=== PATIENT | female | born 1980 | race Caucasian/White ===

== ENCOUNTER 2021-03-18 09:09 | Emergency (ER) | payer OTHER ==
--- NOTE | 2021-03-18 09:47 | ED Physician Documentation ---
PD HPI ABD PAIN - Stated complaint Stated Complaint: ABD PX - Chief complaint Chief Complaint: Abd Pain - History obtained from History obtained from: Patient - History of Present Illness Timing - onset: Last night, Yesterday Timing - duration: Days (/2) Timing - details: Gradual onset, Still present Quality: Cramping, Aching, Pain Location: LLQ Radiation: Lower back. No: Chest, Left flank Improved by: Laying still. No: Eating Worsened by: Moving, Palpation. No: Eating, Breathing Associated symptoms: Nausea, Loss of appetite. No: Fever, Vomiting, Diarrhea, Constipation, Melena, Dysuria, Chest pain Similar symptoms before: Has not had sx before Recently seen: Not recently seen Review of Systems Constitutional: denies: Fever, Chills Nose: denies: Rhinorrhea / runny nose, Congestion Throat: denies: Sore throat Respiratory: denies: Cough GI: reports: Abdominal Pain, Nausea. denies: Vomiting, Constipation, Diarrhea, Bloody / black stool : denies: Dysuria, Frequency, Vaginal bleeding Skin: denies: Rash, Lesions Neurologic: denies: Generalized weakness, Focal weakness, Numbness, Near syncope PD PAST MEDICAL HISTORY - Past Medical History Cardiovascular: None Respiratory: None GI: None - Present Medications Home Medications: Ambulatory Orders Medication Instructions Recorded Confirmed HYDROcod/ACETAM 5/325 [Arroyo 5/325] 1 ea PO Q6H PRN #14 tablet 03/18/21 Naproxen 250 mg PO TID 5 Days #15 tablet 03/18/21 Ondansetron Odt [Zofran] 4 mg TL Q6H PRN #15 tablet 03/18/21 cephALEXin [Keflex] 500 mg PO TID 5 Days #15 cap 03/18/21 metroNIDAZOLE [Flagyl] 250 mg PO TID 5 Days #15 tablet 03/18/21 - Allergies Allergies/Adverse Reactions: Allergies Allergy/AdvReac Type Severity Reaction Status Date / Time No Known Drug Allergies Allergy Verified 03/18/21 09:25 PD ED PE NORMAL - Vitals Vital signs reviewed: Yes - General General: Alert and oriented X 3, Well developed/nourished, Other (appears mildly in pain left low abd. ) - Neck Neck: Supple, no meningeal sign, No adenopathy - Cardiac Cardiac: RRR, No murmur - Respiratory Respiratory: Clear bilaterally - Abdomen Abdomen: Soft, Non distended, No organomegaly, Other (tender left lower to mid abd without guarding nor percussion tenderness. ). No: Normal bowel sounds (decreased somewhat) - Female Female : Deferred - Rectal Rectal: Deferred - Back Back: No CVA TTP - Derm Derm: Normal color, Warm and dry, No rash - Extremities Extremities: No edema, No calf tenderness / cord - Neuro Neuro: Alert and oriented X 3, No motor deficit, Normal speech Results - Vitals Vitals: Vital Signs - 24 hr 03/18/21 03/18/21 03/18/21 09:18 11:24 12:56 Temperature 36.7 C 37 C Heart Rate 71 65 65 Respiratory 16 19 18 Rate Blood Pressure 124/78 109/50 L 122/72 O2 Saturation 99 97 99 Oxygen O2 Source Room air - Labs Labs: Laboratory Tests 03/18/21 03/18/21 03/18/21 05:43 09:51 09:51 WBC 13.4 H RBC 4.88 Hgb 14.5 Hct 43.8 MCV 89.8 MCH 29.7 MCHC 33.1 RDW 12.9 Plt Count 275 MPV 10.7 Neut # (Auto) 10.7 H Lymph # (Auto) 1.4 L [place] # (Auto) 1.0 Eos # (Auto) 0.1 Baso # (Auto) 0.1 Absolute Nucleated RBC 0.00 Nucleated RBC % 0.0 Sodium 133 L Potassium 4.3 Chloride 101 Carbon Dioxide 24 Anion Gap 8.0 BUN 18 Creatinine 0.7 Estimated GFR (MDRD) 94 Glucose 126 H Calcium 9.6 Total Bilirubin 1.0 AST 17 ALT 34 Alkaline Phosphatase 60 Total Protein 8.0 Albumin 4.4 Globulin 3.6 Albumin/Globulin Ratio 1.2 Lipase 24 Urine Color LIGHT YELLOW Urine Clarity CLEAR Urine pH 7.0 Ur Specific [place] 1.015 Urine Protein NEGATIVE Urine Glucose (UA) NEGATIVE Urine Ketones NEGATIVE Urine Occult Blood SMALL H Urine Nitrite NEGATIVE Urine Bilirubin NEGATIVE Urine Urobilinogen 0.2 (NORMAL) Ur Leukocyte Esterase NEGATIVE Urine RBC 0-5 Urine WBC 0-3 Ur Squamous Epith Cells MOD Squamous H Urine Bacteria Few Ur Microscopic Review INDICATED Urine Culture Comments NOT INDICATED Urine HCG, Qual NEGATIVE - Rads (name of study) abd/pelvic CT Radiology: Prelim report reviewed (sigmoid diverticulitis without abscess nor perforation. ), See rad report PD MEDICAL DECISION MAKING - ED course Complexity details: reviewed results, re-evaluated patient (patient improved with meds here. ), considered differential (consider diverticular vs kidney stone vs ovarian cyst, or other considerations. ), d/w patient Departure - Departure Disposition: 01 Home, Self Care Clinical Impression: Left sided abdominal pain, Acute diverticulitis Condition: Stable Record reviewed to determine appropriate education?: Yes Instructions: ED Diverticulitis Prescriptions: metroNIDAZOLE [Flagyl] 250 mg PO TID 5 Days #15 tablet cephALEXin [Keflex] 500 mg PO TID 5 Days #15 cap Naproxen 250 mg PO TID 5 Days #15 tablet HYDROcod/ACETAM 5/325 [[place] 5/325] 1 ea PO Q6H PRN #14 tablet PRN Reason: Pain Ondansetron Odt [Zofran] 4 mg TL Q6H PRN #15 tablet PRN Reason: Nausea / Vomiting Comments: Your CT scan shows acute diverticulitis of the sigmoid and descending colon. Refer to the information sheet. We typically treat this with good hydration and regular diet along with anti- inflammatories and antibiotics. I wrote prescriptions for naproxen cephalexin and metronidazole to take 3 times a day for the next 5 days. To that add Tylenol every 4-6 hours or hydrocodone if needed for worse pain. Use ondansetron if needed for nausea. I would anticipate improvement and resolution over the next 2 to 3 days or so. Recheck if not improved in that timeframe and return if worsening. I transmitted your prescriptions to [facility] pharmacy in [place]. I am prescribing a short course of narcotic pain medication for you. These are potentially dangerous and addictive medications that should be used carefully. These medications may constipate you. Take an [id number]-[id number] stool softener such as docusate twice daily with plenty of water while taking these medications. If you go 24 hours without a bowel movement, take [id number] MiraLAX, per package instructions. Do not drink or drive while taking these medications. If you received narcotic or sedating medications while in the emergency department do not drive for 24 hours. Store this medication in a safe, secure place and out of reach of children. It is a violation of federal law to give or sell this medication to another person or to use in a manner other than prescribed. The ED will not refill narcotic prescriptions, including prescriptions lost or stolen. You can dispose of unwanted medications at the [facility] office or at several pharmacies such as [facility]. Discharge Date/Time: 03/18/21 12:58
[2021-03-18 09:57] LABS: BASOPHILS # (AUTO) 0.1 10^3/uL (0.0-0.1); BASOPHILS % (AUTO) 0.5 %; EOSINOPHILS # (AUTO) 0.1 10^3/uL (0.0-0.7); EOSINOPHILS % (AUTO) 0.9 %; HCT - HEMATOCRIT 43.8 % (37.0-47.0); HGB - HEMOGLOBIN 14.5 g/dL (12.0-16.0); LYMPHOCYTES # (AUTO) 1.4 10^3/uL (1.5-3.5); LYMPHOCYTES % (AUTO) 10.7 %; MEAN CORPUSCULAR HEMOGLOBIN 29.7 pg (27.0-31.0); MEAN CORPUSCULAR HGB CONC 33.1 g/dL (32.0-36.0); MEAN CORPUSCULAR VOLUME 89.8 fL (81.0-99.0); MEAN PLATELET VOLUME 10.7 fL (7.9-10.8); MONOCYTES % (AUTO) 7.4 %; NEUTROPHILS # (AUTO) 10.7 10^3/uL (1.5-6.6); NEUTROPHILS % (AUTO) 80.1 %; PLT - PLATELET COUNT 275 10^3/uL (130-450); RED BLOOD COUNT 4.88 10^6/uL (4.20-5.40); RED CELL DISTRIBUTION WIDTH 12.9 % (12.0-15.0); WHITE BLOOD COUNT 13.4 x10^3/uL (4.8-10.8)
[2021-03-18] MEDS ORDERED: HYDROmorphone 1 MG/ML CARPUJECT IVP STA (10:00)
[2021-03-18] MEDS ORDERED: KETOROLAC 30 MG/ML VIAL IVP STA (10:00)
[2021-03-18] MEDS ORDERED: SODIUM CHLORIDE 0.9% 1,000 ML IV STA (10:00)
[2021-03-18] MEDS ORDERED: ONDANSETRON 4 MG/2 ML VIAL IVP STA (10:00)
[2021-03-18 10:05] LABS: BILIRUBIN,URINE NEGATIVE (NEGATIVE); GLUCOSE, URINE (UA) NEGATIVE (NEGATIVE); KETONES,URINE (UA) NEGATIVE (NEGATIVE); LEUKOCYTE ESTERASE, URINE NEGATIVE (NEGATIVE); NITRITE,URINE NEGATIVE (NEGATIVE); OCCULT BLOOD,URINE SMALL (NEGATIVE); PROTEIN,URINE NEGATIVE (NEGATIVE); UROBILINOGEN,URINE 0.2 (NORMAL) E.U./dL (NORMAL)
[2021-03-18 10:08] LABS: ALBUMIN 4.4 g/dL (3.2-5.5); ALBUMIN/GLOBULIN RATIO 1.2 (1.0-2.2); CALCIUM 9.6 mg/dL (8.5-10.3); CREATININE 0.7 mg/dL (0.4-1.0); POTASSIUM 4.3 mmol/L (3.5-5.0)
[2021-03-18 10:10] LABS: CLARITY,URINE CLEAR (CLEAR); HCG UR QUAL NEGATIVE
[2021-03-18 10:19] LABS: BACTERIA,URINE Few /HPF (None Seen); RBC,URINE 0-5 /HPF (0-5); SQUAMOUS EPITHELIAL CELL,UR MOD Squamous (<= Few); WBC,URINE 0-3 /HPF (0-5)
[2021-03-18] MEDS ORDERED: iohexoL-300 100 ML VIAL ONE (10:55)
[2021-03-18] MEDS ORDERED: iohexoL-300 100 ML VIAL IVP ONE (11:15)
--- NOTE | 2021-03-18 11:25 | CT Report ---
PROCEDURE: Abdomen/Pelvis W INDICATIONS: left abd pain CONTRAST: IV CONTRAST: Isovue 300 ml: 100 PO CONTRAST: *NO PO CONTRAST TECHNIQUE: After the administration of IV contrast, 5 mm thick sections acquired from the diaphragms to the symp hysis. 5 mm thick coronal and sagittal reformats were acquired. For radiation dose reduction, the f ollowing was used: automated exposure control, adjustment of mA and/or kV according to patient size. COMPARISON: None. FINDINGS: Image quality: Excellent. ABDOMEN: Lung bases: Lung bases are clear. Heart size is normal. Solid organs: Incidental note is made of focal fatty infiltration adjacent to the falciform ligament , which is not regarded to the frankly pathologic. The liver demonstrates normal size. The spleen d emonstrates normal size and demonstrates no suspicious lesions. Gallbladder wall does not appear thi ckened. Biliary system is non dilated. Pancreas enhances normally. No adrenal nodules. Kidneys demonstrate normal size and enhancement, without hydronephrosis. Peritoneum and bowel: There is abnormal wall thickening seen involving the distal descending colon/pr oximal sigmoid colon, with surrounding inflammatory change. A few diverticula can be seen within this region. No abscess can be seen. No free air or significant free fluid can be seen. No additional focal colonic abnormality can be seen. No dilated loops of small bowel are seen. Nodes and vessels: No retroperitoneal or mesenteric adenopathy by size criteria. Aorta and inferior vena cava are normal in size. Miscellaneous: No ventral hernias. PELVIS: Genitourinary: Bladder wall thickness is normal. The uterus demonstrates an unremarkable appearance for age. No adnexal masses are seen. Miscellaneous: No inguinal hernias or adenopathy. Bones: No suspicious bony lesions. No vertebral body compression fractures. Mild levoconvex scolio tic curvature is seen. This patient has transitional anatomy. For the purposes of this examination, the level with disc degenerative ribs is considered to be T12. By this numbering scheme, the L5 level is transitional and is highly sacralized on the right side. IMPRESSION: Focal distal descending colon/proximal sigmoid colon diverticulitis, without findings of perforation or abscess. 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
[2021-03-18] MEDS ORDERED: cefTRIAXone 1 GM VIAL IVP STA (11:59)
[2021-03-18] MEDS ORDERED: metroNIDAZOLE 250 MG TABLET PO STA (12:00)
[2021-03-18] MEDS ORDERED: HYDROmorphone 0.5 MG/0.5 ML SYRINGE IVP STA (12:29)
[2021-03-18 12:57] VITALS: BP 122/72
== END 2021-03-18 12:58 | disposition home or self-care (01) ==
LOC: ED 09:09
DX: K57.32 Diverticulitis of large intestine without perforation or abscess without bleeding (principal)
CPT/HCPCS: 36415; 74177; 80053; 81001; 81025; 83690; 85025; 96374; 96375; 96376; 99284; A9270; J1170; Q9967; 81003; 87086

== ENCOUNTER 2022-07-14 18:04 | Emergency (ER) | payer MEDICAID, OTHER ==
--- NOTE | 2022-07-14 18:40 | ED Physician Documentation ---
History of Present Illness - Stated complaint Stated Complaint: BLEEDING/ - Chief complaint Chief Complaint: Abd Pain - History obtained from History obtained from: Patient - History of Present Illness Timing: Today Pain level max: 2 Pain level now: 2 - Additonal information Additional information: 41-year-old female, 3 para 1 presents to the emergency department stating that she is unsure of her dating but thinks she could be as far as 10 weeks along. She has an appointment with an OB at the beginning of July. She states that today she developed vaginal bleeding at about noon, recurred about 2 hours later. Is not having abdominal pain. No fevers. No chills. Nothing makes it better or worse. 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) HEENT: None - Past Surgical History Past Surgical History: No - Allergies Allergies/Adverse Reactions: Allergies Allergy/AdvReac Type Severity Reaction Status Date / Time No Known Drug Allergies Allergy Verified 07/14/22 18:23 - Social History Does the pt smoke?: No Smoking Status: Never smoker Does the pt drink ETOH?: No Does the pt have substance abuse?: No - Immunizations Immunizations are current?: Yes PD ED PE NORMAL - Vitals Vital signs reviewed: Yes - General General: Alert and oriented X 3, No acute distress - HEENT HEENT: Moist mucous membranes - Cardiac Cardiac: RRR, Strong equal pulses - Respiratory Respiratory: No respiratory distress, Clear bilaterally - Abdomen Abdomen: Soft, Non tender, Non distended - Derm Derm: Warm and dry - Extremities Extremities: No edema, No calf tenderness / cord - Neuro Neuro: Alert and oriented X 3 - Psych Psych: Normal mood, Normal affect Results - Vitals Vitals: Vital Signs - 24 hr 07/14/22 07/14/22 18:19 21:07 Temperature 36.7 C Heart Rate 75 78 Respiratory 18 18 Rate Blood Pressure 127/84 H 124/82 H O2 Saturation 100 100 Oxygen O2 Source Room air - Labs Labs: Laboratory Tests 0507/14/22 07/14/22 18:39 18:39 18:39 WBC 13.4 H RBC 4.71 Hgb 13.8 Hct 42.6 MCV 90.4 MCH 29.3 MCHC 32.4 RDW 13.0 Plt Count 292 MPV 10.4 Neut # (Auto) 9.9 H Lymph # (Auto) 2.5 [place] # (Auto) 0.8 Eos # (Auto) 0.1 Baso # (Auto) 0.1 Absolute Nucleated RBC 0.00 Nucleated RBC % 0.0 Sodium 139 Potassium 3.6 Chloride 106 Carbon Dioxide 25 Anion Gap 8.0 BUN 17 Creatinine 0.6 Estimated GFR (MDRD) 111 Glucose 104 H Calcium 9.9 Total Bilirubin 0.6 AST 16 ALT 25 Alkaline Phosphatase 57 Total Protein 8.1 Albumin 4.5 Globulin 3.6 Albumin/Globulin Ratio 1.3 Lipase 32 HCG, Quant Urine Color Urine Clarity Urine pH Ur Specific [place] Urine Protein Urine Glucose (UA) Urine Ketones Urine Occult Blood Urine Nitrite Urine Bilirubin Urine Urobilinogen Ur Leukocyte Esterase Urine RBC Urine WBC Ur Squamous Epith Cells Urine Bacteria Ur Microscopic Review Urine Culture Comments Blood Type O POSITIVE 07/14/22 07/14/22 18:39 18:59 WBC RBC Hgb Hct MCV MCH MCHC RDW Plt Count MPV Neut # (Auto) Lymph # (Auto) [place] # (Auto) Eos # (Auto) Baso # (Auto) Absolute Nucleated RBC Nucleated RBC % Sodium Potassium Chloride Carbon Dioxide Anion Gap BUN Creatinine Estimated GFR (MDRD) Glucose Calcium Total Bilirubin AST ALT Alkaline Phosphatase Total Protein Albumin Globulin Albumin/Globulin Ratio Lipase HCG, Quant 547.24 Urine Color YELLOW Urine Clarity CLEAR Urine pH 5.5 Ur Specific [place] 1.020 Urine Protein NEGATIVE Urine Glucose (UA) NEGATIVE Urine Ketones NEGATIVE Urine Occult Blood LARGE H Urine Nitrite NEGATIVE Urine Bilirubin NEGATIVE Urine Urobilinogen 0.2 (NORMAL) Ur Leukocyte Esterase NEGATIVE Urine RBC 6-10 H Urine WBC 0-3 Ur Squamous Epith Cells FEW Squamous Urine Bacteria Few Ur Microscopic Review INDICATED Urine Culture Comments NOT INDICATED Blood Type - Rads (name of study) OB ultrasound Relevant Findings:: Final report received, See rad report PD Medical Decision Making - ED course Complexity details: reviewed results, re-evaluated patient, considered tristane felicia, d/w patient ED course: 41-year-old female with painless vaginal bleeding, unsure of her dates. Her beta-hCG is 547. Her OB ultrasound does not show any evidence of at this time. She does not have any pain. The remainder of her laboratory tests are normal except a mildly elevated white blood cell count. We will have her follow-up with OB for repeat beta hCG to see if it is increasing or decreasing. Ectopic precautions given at bedside. Patient counseled regarding signs and symptoms for which I believe and urgent re-evaluation would be necessary. Patient with good understanding of and agreement to plan and is comfortable going home at this time This document was made in part using voice recognition software. While efforts are made to proofread this document, sound alike and grammatical errors may occur. Departure - Departure Disposition: 01 Home, Self Care Clinical Impression: Vaginal bleeding affecting early Condition: Good Instructions: ED Miscarriage Poss Follow-Up: Your,doctor in 3 days [Other] Comments: Please follow-up with your OB or PCP in 3 days for repeat beta-hCG. Your hCG level today is 547.24. Your ultrasound does not show any evidence of at this time. This is likely either due to an early or a possible miscarriage. Please return if you worsen. If the hCG level is increasing appropriately, this is likely a early , if the hCG is decreasing, likely represents miscarriage. Discharge Date/Time: 07/14/22 21:08
[2022-07-14 18:47] LABS: BASOPHILS # (AUTO) 0.1 10^3/uL (0.0-0.1); BASOPHILS % (AUTO) 0.4 %; EOSINOPHILS # (AUTO) 0.1 10^3/uL (0.0-0.7); EOSINOPHILS % (AUTO) 0.4 %; HCT - HEMATOCRIT 42.6 % (37.0-47.0); HGB - HEMOGLOBIN 13.8 g/dL (12.0-16.0); LYMPHOCYTES # (AUTO) 2.5 10^3/uL (1.5-3.5); LYMPHOCYTES % (AUTO) 18.7 %; MEAN CORPUSCULAR HEMOGLOBIN 29.3 pg (27.0-31.0); MEAN CORPUSCULAR HGB CONC 32.4 g/dL (32.0-36.0); MEAN CORPUSCULAR VOLUME 90.4 fL (81.0-99.0); MEAN PLATELET VOLUME 10.4 fL (7.9-10.8); MONOCYTES # (AUTO) 0.8 10^3/uL (0.0-1.0); MONOCYTES % (AUTO) 6.1 %; NEUTROPHILS # (AUTO) 9.9 10^3/uL (1.5-6.6); NEUTROPHILS % (AUTO) 74.1 %; PLT - PLATELET COUNT 292 10^3/uL (130-450); RED BLOOD COUNT 4.71 10^6/uL (4.20-5.40); WHITE BLOOD COUNT 13.4 x10^3/uL (4.8-10.8)
[2022-07-14 19:03] LABS: ALBUMIN 4.5 g/dL (3.2-5.5); ALBUMIN/GLOBULIN RATIO 1.3 (1.0-2.2); BILIRUBIN,TOTAL 0.6 mg/dL (0.2-1.0); CALCIUM 9.9 mg/dL (8.5-10.3); CREATININE 0.6 mg/dL (0.4-1.0); POTASSIUM 3.6 mmol/L (3.5-5.0); TOTAL PROTEIN 8.1 g/dL (6.7-8.2)
[2022-07-14 19:05] LABS: BILIRUBIN,URINE NEGATIVE (NEGATIVE); CLARITY,URINE CLEAR (CLEAR); GLUCOSE, URINE (UA) NEGATIVE (NEGATIVE); KETONES,URINE (UA) NEGATIVE (NEGATIVE); LEUKOCYTE ESTERASE, URINE NEGATIVE (NEGATIVE); NITRITE,URINE NEGATIVE (NEGATIVE); OCCULT BLOOD,URINE LARGE (NEGATIVE); PH,URINE 5.5 PH (5.0-7.5); PROTEIN,URINE NEGATIVE (NEGATIVE); UROBILINOGEN,URINE 0.2 (NORMAL) E.U./dL (NORMAL)
[2022-07-14 19:12] LABS: SQUAMOUS EPITHELIAL CELL,UR FEW Squamous (<= Few); WBC,URINE 0-3 /HPF (0-5)
[2022-07-14 19:13] LABS: BACTERIA,URINE Few /HPF (None Seen)
--- NOTE | 2022-07-14 20:31 | Ultrasound Report ---
PROCEDURE: OB First Trimester w/TV INDICATIONS: 10 weeks preg, VB OUTSIDE/PRIOR DATING DATA: Last menstrual period (LMP): Not available. LMP-based estimated date of delivery (SILVANA): Not available. First dating scan (date and location): This study. Estimated date of delivery (SILVANA) from first dating scan: No identified. TECHNIQUE: Real-time scanning was performed of the fetus and maternal pelvic organs, with image documentation. Endovaginal scanning was also performed to better visualize the fetus and maternal ovaries. COMPARISON: None FINDINGS: An intrauterine gestational sac or gestation is not identified. Embryo: Not seen Heart rate: Not applicable Measurement variability in dating: +/- 4 weeks by LMP, +/- 7 days by mean sac diameter (use before 6 weeks gestation if crown-rump length not able to be measured), +/- 5 days by crown-rump length (6-12 weeks gestation). Maternal organs: Ovaries normal limited evaluation. IMPRESSION: No found, no sonographic evidence of ectopic , correlation with quantitative beta hCG may be warranted to determine if there is evidence of ectopic despite no visualized son ographic evidence of that potential abnormality. Reviewed by: Kory Underwood MD on 07/14/2022 8:30 PM PDT Approved by: Kory Underwood MD on 07/14/2022 8:30 PM PDT Station ID: [id number]
[2022-07-14 21:07] VITALS: BP 124/82
== END 2022-07-14 21:08 | disposition home or self-care (01) ==
LOC: ED 18:04
DX: O20.9 Hemorrhage in early pregnancy, unspecified (principal)
CPT/HCPCS: 36415; 80053; 81001; 81003; 83690; 84702; 85025; 86900; 86901; 87086; 99283; 99284

== ENCOUNTER 2022-07-20 10:08 | Emergency (ER) | payer MEDICAID ==
[2022-07-20 10:48] LABS: BASOPHILS # (AUTO) 0.1 10^3/uL (0.0-0.1); BASOPHILS % (AUTO) 0.7 %; EOSINOPHILS # (AUTO) 0.1 10^3/uL (0.0-0.7); EOSINOPHILS % (AUTO) 0.6 %; HCT - HEMATOCRIT 40.2 % (37.0-47.0); LYMPHOCYTES # (AUTO) 1.6 10^3/uL (1.5-3.5); LYMPHOCYTES % (AUTO) 13.7 %; MEAN CORPUSCULAR HEMOGLOBIN 29.5 pg (27.0-31.0); MEAN CORPUSCULAR HGB CONC 32.3 g/dL (32.0-36.0); MEAN CORPUSCULAR VOLUME 91.4 fL (81.0-99.0); MEAN PLATELET VOLUME 10.6 fL (7.9-10.8); MONOCYTES % (AUTO) 8.4 %; NEUTROPHILS % (AUTO) 76.3 %; PLT - PLATELET COUNT 262 10^3/uL (130-450); RED CELL DISTRIBUTION WIDTH 12.8 % (12.0-15.0); WHITE BLOOD COUNT 11.7 x10^3/uL (4.8-10.8)
[2022-07-20 10:51] LABS: PT - PROTHROMBIN TIME 11.5 secs (9.9-12.6)
--- NOTE | 2022-07-20 11:49 | ED Physician Documentation ---
PD HPI FEMALE - Stated complaint Stated Complaint: FEMALE - Chief complaint Chief Complaint: Abd Pain - History obtained from History obtained from: Patient - Additional information Additional information: The patient comes to the emergency department with chief complaint of ongoing lower abdominal cramping after a miscarriage about 6 days ago. The patient states that she is not exactly sure how far along she was, though she thinks somewhere between 6 and 12 weeks. She began to have bleeding and was seen here in the emergency department at which time she had ultrasound demonstrating IUP t hat was not viable and also had an hCG level performed. The patient has been in touch with OB since but states that she is here today because her bleeding had continued fairly heavily throughout the week and she is also had significant lower abdominal cramping. She does note that the bleeding has improved today but the cramping has not. She denies any focal pain. No fevers or chills. No nausea or vomiting. No dysuria. She did pass a very definite products of conception with a sac earlier in the week. 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) HEENT: None - Past Surgical History Past Surgical History: No - Allergies Allergies/Adverse Reactions: Allergies Allergy/AdvReac Type Severity Reaction Status Date / Time No Known Drug Allergies Allergy Verified 07/20/22 10:18 - Social History Does the pt smoke?: No Smoking Status: Never smoker Does the pt drink ETOH?: No Does the pt have substance abuse?: No - Immunizations Immunizations are current?: Yes PD ED PE NORMAL - Vitals Vital signs reviewed: Yes - General General: Alert and oriented X 3, No acute distress, Well developed/nourished - HEENT HEENT: Atraumatic, PERRL, EOMI, Moist mucous membranes - Neck Neck: Supple, no meningeal sign - Cardiac Cardiac: RRR, No murmur - Respiratory Respiratory: No respiratory distress, Clear bilaterally - Abdomen Abdomen: Soft, Non distended, Other (Mild tenderness left lower quadrant medially. No rebound or guarding.) - Derm Derm: Warm and dry - Extremities Extremities: No deformity - Neuro Neuro: Alert and oriented X 3 - Psych Psych: Normal mood, Normal affect Results - Vitals Vitals: Vital Signs - 24 hr 07/20/22 10:13 Temperature 37.0 C Heart Rate 78 Respiratory 20 Rate Blood Pressure 124/73 O2 Saturation 100 Oxygen O2 Source Room air - Labs Labs: Laboratory Tests 07/20/22 07/20/22 07/20/22 10:30 10:30 11:55 WBC 11.7 H RBC 4.40 Hgb 13.0 Hct 40.2 MCV 91.4 MCH 29.5 MCHC 32.3 RDW 12.8 Plt Count 262 MPV 10.6 Neut # (Auto) 9.0 H Lymph # (Auto) 1.6 [place] # (Auto) 1.0 Eos # (Auto) 0.1 Baso # (Auto) 0.1 Absolute Nucleated RBC 0.00 Nucleated RBC % 0.0 PT 11.5 INR 1.0 HCG, Quant 13.03 - Rads (name of study) Pelvic ultrasound Relevant Findings:: Final report received, See rad report (Negative. No susan ined products of conception.) PD Medical Decision Making - ED course Complexity details: reviewed results, re-evaluated patient, considered differential, d/w patient ED course: The patient was worked up with labs including hCG and an ultrasound of the pelvis. hCG was found to have come down from well over 500 six days ago to 13 today. Her ultrasound was normal with no evidence of retained products of conception. I felt the patient was stable for discharge home. She does not have any fevers or severe abdominal pain and discussed with her that most likely, the symptoms she is having just reflect her body is returned to normal after the and miscarriage. We discussed the usual indications for follow-up and return. Departure - Departure Disposition: 01 Home, Self Care Clinical Impression: Complete miscarriage Condition: Stable Instructions: Miscarriage Dc Comments: Your ultrasound does not show any retained products of conception, nor does it show any other reason to be concerned about the bleeding or the cramping. Your hormones to have gone from over 500 down to 13 in the last 6 days. This demonstrates that your miscarriage has progressed as it should and at this point in time, your body is most likely just going through the process of returning to normal. You may take ibuprofen if needed for the cramps. At this point, if you would like to use a tampon that is probably fine. He may resume sexual intercourse whenever you feel comfortable doing so. Please follow-up with your OB bundle breaker as needed or for further concerns.
[2022-07-20 13:41] VITALS: BP 135/76
--- NOTE | 2022-07-20 13:53 | Ultrasound Report ---
PROCEDURE: Pelvic Limited or F/U INDICATIONS: miscarriage, still bleeding/pain TECHNIQUE: Real-time transabdominal scanning was performed of the pelvic organs, with image documentation. COMPARISON: None. FINDINGS: Uterus: Uterus is anteverted and fibroid in size at 10.0 x 5.6 x 5.8 cm. The myometrium is heteroge neous. The endometrium measures 3 mm in combined thickness. No retained products of conception note d. There are 2 fibroids noted. Fibroid 1 is midline anterior, subserosal, 1.7 x 1.5 x 1.8 cm. Fibroid 2 is left posterior subserosal, measuring 2.0 x 2.3 x 2.2 cm. Right ovary not visualized, secondary to overlying bowel gas. Left ovary measures 2.5 x 1.5 x 2.3 cm with a volume of 4.6 cm. Left ovary is normal in appearance. Other: No free pelvic fluid. IMPRESSION: 1. No evidence retained products of conception. 2. Fibroid uterus. Reviewed by: Brandon Burt MD on 07/20/2022 1:51 PM PDT Approved by: Brandon Burt MD on 07/20/2022 1:51 PM PDT Station ID: [id number]
[2022-07-20 14:17] LABS: ALBUMIN 3.6 g/dL (3.2-5.5); ALBUMIN/GLOBULIN RATIO 1.2 (1.0-2.2); BILIRUBIN,TOTAL 0.5 mg/dL (0.2-1.0); CALCIUM 9.4 mg/dL (8.5-10.3); CREATININE 0.6 mg/dL (0.4-1.0); TOTAL PROTEIN 6.6 g/dL (6.7-8.2)
== END 2022-07-20 13:39 | disposition home or self-care (01) ==
LOC: ED 10:08
DX: O03.9 Complete or unspecified spontaneous abortion without complication (principal)
CPT/HCPCS: 36415; 80053; 83690; 84702; 85025; 85610; 99283; 99284

== ENCOUNTER 2023-07-23 12:55 | Emergency (ER) | payer MEDICAID ==
[2023-07-23 13:10] VITALS: O2SAT 100
[2023-07-23 13:54] LABS: BASOPHILS # (AUTO) 0.1 10^3/uL (0.0-0.1); BASOPHILS % (AUTO) 0.9 %; EOSINOPHILS # (AUTO) 0.1 10^3/uL (0.0-0.7); EOSINOPHILS % (AUTO) 1.2 %; HCT - HEMATOCRIT 43.2 % (37.0-47.0); HGB - HEMOGLOBIN 13.8 g/dL (12.0-16.0); LYMPHOCYTES % (AUTO) 18.2 %; MEAN CORPUSCULAR HGB CONC 31.9 g/dL (32.0-36.0); MEAN CORPUSCULAR VOLUME 90.8 fL (81.0-99.0); MEAN PLATELET VOLUME 10.2 fL (7.9-10.8); MONOCYTES # (AUTO) 0.8 10^3/uL (0.0-1.0); MONOCYTES % (AUTO) 7.5 %; NEUTROPHILS # (AUTO) 7.9 10^3/uL (1.5-6.6); NEUTROPHILS % (AUTO) 71.9 %; PLT - PLATELET COUNT 312 10^3/uL (130-450); RED BLOOD COUNT 4.76 10^6/uL (4.20-5.40); RED CELL DISTRIBUTION WIDTH 12.8 % (12.0-15.0)
[2023-07-23 14:08] LABS: ALBUMIN 4.4 g/dL (3.2-5.5); ALBUMIN/GLOBULIN RATIO 1.4 (1.0-2.2); BILIRUBIN,TOTAL 0.4 mg/dL (0.2-1.0); CALCIUM 10.5 mg/dL (8.5-10.3); CREATININE 0.6 mg/dL (0.6-1.3); POTASSIUM 4.7 mmol/L (3.5-4.5); TOTAL PROTEIN 7.6 g/dL (6.4-8.9)
--- NOTE | 2023-07-23 15:46 | Ultrasound Report ---
PROCEDURE: OB 1st Trimester w/TV INDICATIONS: early , cramps/bleeding OUTSIDE/PRIOR DATING DATA: Last menstrual period (LMP): 05/15/2023. LMP-based estimated date of delivery (SILVANA): 02/19/2024. TECHNIQUE: Real-time scanning was performed of the fetus and maternal pelvic organs, with image documentation. Endovaginal scanning was also performed to better visualize the fetus and maternal ovaries. COMPARISON: None. FINDINGS: Intrauterine gestational sac not visualized. No adnexal mass. Maternal organs: Right ovary not visualized. Left ovary is normal in appearance. IMPRESSION: of unknown location, with no gestational sac or adnexal mass visualized. Differential inclu surjit early gestational , miscarriage, or less likely ectopic . Consider trending bet a-hCG or repeat ultrasound as necessary. Reviewed by: Erich Mendez MD on 07/23/2023 3:44 PM PDT Approved by: Erich Mendez MD on 07/23/2023 3:44 PM PDT Station ID: [id number]
--- NOTE | 2023-07-23 16:58 | ED Physician Documentation ---
History of Present Illness - Stated complaint Stated Complaint: /6 WEEKS PREG - Chief complaint Chief Complaint: Abd Pain - History obtained from History obtained from: Patient, Family - History of Present Illness Timing: Last night Pain level max: 7 Pain level now: 2 - Additonal information Additional information: 42-year-old female, 6, para 3, presents to the emergency department stating that she is concerned about a miscarriage. She states that she was supposed to be 9 weeks EGA by her LMP. She was seen at [facility] in [place]. She states that her last hCG was 5300 and then down to 5100. She states last night began to have abdominal pain, cramping and vaginal bleeding. She states that the bleeding has slowed down now, but was concerned about the cramping. She states the cramping has improved at this time as well. 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) HEENT: None - Past Surgical History Past Surgical History: No - Allergies Allergies/Adverse Reactions: Allergies Allergy/AdvReac Type Severity Reaction Status Date / Time No Known Drug Allergies Allergy Verified 07/20/22 10:18 - Social History Does the pt smoke?: No Smoking Status: Never smoker Does the pt drink ETOH?: No Does the pt have substance abuse?: No - Immunizations Immunizations are current?: Yes PD ED PE NORMAL - Vitals Vital signs reviewed: Yes - General General: Alert and oriented X 3, No acute distress - HEENT HEENT: PERRL, Moist mucous membranes - Neck Neck: Supple, no meningeal sign - Cardiac Cardiac: RRR, Strong equal pulses - Respiratory Respiratory: No respiratory distress, Clear bilaterally - Abdomen Abdomen: Soft, Non tender, Non distended - Derm Derm: Warm and dry - Neuro Neuro: Alert and oriented X 3 - Psych Psych: Normal mood, Normal affect Results - Vitals Vitals: Vital Signs - 24 hr 07/23/23 07/23/23 13:00 17:13 Temperature 36.5 C Heart Rate 75 70 Respiratory 18 18 Rate Blood Pressure 125/62 128/70 O2 Saturation 100 100 Oxygen O2 Source Room air - Labs Labs: Laboratory Tests 07/23/23 07/23/23 13:49 13:49 WBC 11.0 H RBC 4.76 Hgb 13.8 Hct 43.2 MCV 90.8 MCH 29.0 MCHC 31.9 L RDW 12.8 Plt Count 312 MPV 10.2 Neut # (Auto) 7.9 H Lymph # (Auto) 2.0 [place] # (Auto) 0.8 Eos # (Auto) 0.1 Baso # (Auto) 0.1 Absolute Nucleated RBC 0.00 Nucleated RBC % 0.0 Sodium 136 Potassium 4.7 H Chloride 105 Carbon Dioxide 26 Anion Gap 5.0 L BUN 12 Creatinine 0.6 Estimated GFR (MDRD) 111 Glucose 92 Calcium 10.5 H Magnesium 2.0 Total Bilirubin 0.4 AST 13 ALT 25 Alkaline Phosphatase 61 Total Protein 7.6 Albumin 4.4 Globulin 3.2 Albumin/Globulin Ratio 1.4 Lipase 12 Beta HCG, Quant 3323.1 - Rads (name of study) pelvic US Relevant Findings:: Final report received, See rad report PD Medical Decision Making - ED course Complexity details: reviewed results, re-evaluated patient, considered differential, d/w patient ED course: 42-year-old female with a continually decreasing hCG, down to 3300 today. Ultrasound does not show any evidence of an intrauterine . Had right ovary is not visualized. She states that she is not currently having any pain and has not had any ovarian pain. Recommend that she follow-up closely with her OB for serial hCGs and to trend her hCG down to 0. Abdomen is soft, nontender nondistended. Declines any pain medication here for home. Ectopic precautions given at bedside. Patient counseled regarding signs and symptoms for which I believe and urgent re-evaluation would be necessary. Patient with good u nderstanding of and agreement to plan and is comfortable going home at this time This document was made in part using voice recognition software. While efforts are made to proofread this document, sound alike and grammatical errors may occur. Departure - Departure Disposition: 01 Home, Self Care Clinical Impression: Miscarriage Condition: Good Instructions: ED Miscarriage Completed Follow-Up: your,doctor in 3 days [Other] Comments: Your HCG was down to 3323. Your ultrasound does not show any evidence of an intrauterine today. It is important that you do have serial hCGs drawn to ensure that the hCG level goes completely to 0. Please return for increasing pain, fevers, lightheadedness or dizziness, or other new or worrisome symptoms. As we also discussed, Dr. Miguel Gary is the urologist here is his office phone number Forms: PCP List Discharge Date/Time: 07/23/23 17:13
[2023-07-23 17:19] VITALS: BP 128/70
== END 2023-07-23 17:13 | disposition home or self-care (01) ==
LOC: ED 12:55
DX: O03.9 Complete or unspecified spontaneous abortion without complication (principal)
CPT/HCPCS: 36415; 80053; 83690; 83735; 84702; 85025; 99283; 99284